=== PATIENT | male | born 1945 | race Hispanic/Latino ===

== ENCOUNTER 2019-09-12 12:05 | Emergency (ER) | payer MEDICARE ==
[2019-09-12 12:11] VITALS: BP 134/77
--- NOTE | 2019-09-12 12:18 | Emergency Department Report ---
Blank Doc - Documentation Documentation: 73-year-old male that presents with URI symptoms. This initial assessment/diagnostic orders/clinical plan/treatment(s) is/are subject to change based on patient's health status, clinical progression and re- assessment by fellow clinical providers in the ED. Further treatment and workup at subsequent clinical providers discretion. Patient/guardians urged not to elope from the ED as their condition may be serious if not clinically assessed and managed. Initial orders include: 1- Patient sent to [facility] for further evaluation and treatment 2- CXR
--- NOTE | 2019-09-12 12:50 | XRay Report ---
CHEST 2 VIEWS INDICATION: cough. COMPARISON: FINDINGS: Support devices: None. Heart: Within normal limits. Lungs: No acute air space or interstitial disease. Pleura: No significant pleural effusion. No pneumothorax. Additional findings: None. IMPRESSION: 1. No acute findings. Signer Name: Levi Morales MD Signed: 09/12/2019 12:45 PM Workstation Name: [id number]
--- NOTE | 2019-09-12 13:26 | Emergency Department Report ---
- General Chief Complaint: Upper Respiratory Infection Stated Complaint: COUGHING/CONGESTION Time Seen by Provider: 09/12/19 12:16 Source: patient Mode of arrival: Ambulatory Limitations: No Limitations - History of Present Illness Initial Comments: Is a 73-year-old male who is presenting with cough and congestion for the past week. Patient states that this week he's had a productive cough which is productive of yellow to green sputum. Patient also is complaining of sinus congestion and subjective fevers. Patient denies nausea vomiting diarrhea. Patient states is been no body aches. Patient is diabetic and is worried that he may have pneumonia. - Related Data Previous Rx's Medication Instructions Recorded Last Taken Type Benzonatate [Tessalon Perles] 100 mg PO Q8HR #10 capsule 09/12/19 Unknown Rx DOXYCYCLINE Hyclate [Vibramycin 100 mg PO Q12HR #14 capsule 09/12/19 Unknown Rx CAP] Fluticasone [Flonase] 1 spray NS QDAY #1 bottle 09/12/19 Unknown Rx Allergies Allergy/AdvReac Type Severity Reaction Status Date / Time No Known Allergies Allergy Unverified 09/12/19 12:09 ED Review of Systems ROS: Stated complaint: COUGHING/CONGESTION Other details as noted in HPI Comment: All other systems reviewed and negative ED Past Medical Hx - Past Medical History Hx Congestive Heart Failure: Yes Hx Diabetes: Yes - Surgical History Additional Surgical History: BACK SURGERY - Social History Smoking Status: Former Smoker Substance Use Type: Alcohol - Medications Home Medications: Home Medications Medication Instructions Recorded Confirmed Last Taken Type Benzonatate [Tessalon Perles] 100 mg PO Q8HR #10 capsule 09/12/19 Unknown Rx DOXYCYCLINE Hyclate [Vibramycin 100 mg PO Q12HR #14 capsule 09/12/19 Unknown Rx CAP] Fluticasone [Flonase] 1 spray NS QDAY #1 bottle 09/12/19 Unknown Rx ED Physical Exam - General Limitations: No Limitations General appearance: alert, in no apparent distress - Head Head exam: Present: atraumatic, normocephalic - Eye Eye exam: Present: normal appearance - ENT ENT exam: Present: mucous membranes moist - Neck Neck exam: Present: normal inspection - Respiratory Respiratory exam: Present: normal lung sounds bilaterally. Absent: respiratory distress, wheezes, rales, rhonchi - Cardiovascular Cardiovascular Exam: Present: regular rate, normal rhythm, normal heart sounds. Absent: systolic murmur, diastolic murmur, rubs, gallop - GI/Abdominal GI/Abdominal exam: Present: soft, normal bowel sounds. Absent: distended, tenderness, guarding, rebound - Rectal Rectal exam: Present: deferred - Extremities Exam Extremities exam: Present: normal inspection - Back Exam Back exam: Present: normal inspection - Neurological Exam Neurological exam: Present: alert, oriented X3 - Psychiatric Psychiatric exam: Present: normal affect, normal mood - Skin Skin exam: Present: warm, dry, intact, normal color. Absent: rash ED Course Vital Signs 09/12/19 12:10 Temperature 98.2 F Pulse Rate 82 Respiratory 16 Rate Blood Pressure 134/77 O2 Sat by Pulse 99 Oximetry ED Medical Decision Making - Radiology Data CHEST 2 VIEWS INDICATION: cough. COMPARISON: FINDINGS: Support devices: None. Heart: Within normal limits. Lungs: No acute air space or interstitial disease. Pleura: No significant pleural effusion. No pneumothorax. Additional findings: None. IMPRESSION: 1. No acute findings. Signer Name: Levi Morales MD Signed: 09/12/2019 12:45 PM Workstation Name: [id number] - Medical Decision Making Asians 73-year-old male with past history of diabetes who is presenting with cough congestion and subjective fevers. Cough is productive. Patient's chest x-ray ruled out obvious infiltrate or consolidation. Patient likely with acute bronchitis. Because of the patient's age and past medical history of being diabetic patient be started on antibiotic therapy as well as medication for symptomatic relief. Critical care attestation.: If time is entered above; I have spent that time in minutes in the direct care of this critically ill patient, excluding procedure time. ED Disposition Clinical Impression: Acute bronchitis Qualifiers: Bronchitis organism: unspecified organism Qualified Code(s): J20.9 - Acute bronchitis, unspecified Disposition: DC-01 TO HOME OR SELFCARE Is pt being admited?: No Does the pt Need Aspirin: No Condition: Stable Instructions: Acute Bronchitis (ED) Referrals: KAZ CHILDERS MD [Staff Physician] - 3-5 Days Time of Disposition: 13:24
== END 2019-09-12 13:32 | disposition home or self-care (01) ==
LOC: ED 12:05
DX: J20.9 Acute bronchitis, unspecified (principal); I50.9 Heart failure, unspecified; E11.9 Type 2 diabetes mellitus without complications; Z98.890 Other specified postprocedural states; Z87.891 Personal history of nicotine dependence; Z79.899 Other long term (current) drug therapy
CPT/HCPCS: 71046